=== PATIENT | male | born 1995 | race American Indian/Alaskan Native ===

== ENCOUNTER 2017-05-10 13:53 | Emergency (ER) | payer BC ==
[2017-05-10 14:13] VITALS: TEMP 97.9
[2017-05-10] MEDS ORDERED: Tobramycin/Dexamethasone (Tobradex) Opth Sol (2.5 ml) OD STA (14:54)
--- NOTE | 2017-05-10 15:10 | C.PDOC ---
History Of Present Illness Pt c/o right eye symptoms. Time Seen by Provider: 05/10/17 14:20 Chief Complaint (Nursing): Eye Problem History Per: Patient, Family Onset/Duration Of Symptoms: Days (about 2 weeks) Current Symptoms Are (Timing): Still Present Injury To Eye?: No Severity: Moderate Quality: "Pain" Associated Symptoms: Pain, Decreased Vision, Itching Additional History Per: Prior Records Past Medical History Reviewed: Historical Data, Nursing Documentation, Vital Signs Vital Signs: Last Vital Signs Temp 97.9 F 05/10/17 14:04 Pulse 57 L 05/10/17 14:04 Resp 18 05/10/17 14:04 BP 123/62 05/10/17 14:19 Pulse Ox 99 05/10/17 14:04 - Medical History PMH: No Chronic Diseases Surgical History: No Surg Hx Family History: States: Unknown Family Hx - Social History Hx Alcohol Use: Yes Hx Substance Use: Yes ("[place]") Review Of Systems Except As Marked, All Systems Reviewed And Found Negative. Constitutional: Negative for: Fever, Weakness Eyes: Positive for: Conjunctivae Inflammation. Negative for: Eyelid Inflammation ENT: Negative for: Nose Congestion, Throat Pain Cardiovascular: Negative for: Chest Pain Respiratory: Positive for: Cough (resolved). Negative for: Shortness of Breath Gastrointestinal: Negative for: Vomiting, Abdominal Pain Musculoskeletal: Negative for: Neck Pain Skin: Negative for: Rash Neurological: Positive for: Headache. Negative for: Weakness, Numbness, Seizures, Altered Mental Status Physical Exam - Physical Exam Appears: Non-toxic, No Acute Distress Skin: Normal Color, Warm, Dry, No Rash Head: Atraumatic, Normacephalic Eye(s): bilateral: PERRL, EOMI, right: Other (Small hypopyon. Mild conjunctival injection.) Oral Mucosa: Moist, No Drooling, No Trismus Neck: Normal ROM, Supple Lymphatic: No Adenopathy Cardiovascular: Rhythm Regular Respiratory: Normal Breath Sounds, No Accessory Muscle Use Gastrointestinal/Abdominal: Soft, No Tenderness Back: No CVA Tenderness Extremity: Normal ROM Neurological/Psych: Oriented x3, Normal Speech, Normal Cognition, Normal Cranial Nerves, Normal Motor, Normal Sensation ED Course And Treatment O2 Sat by Pulse Oximetry: 99 Pulse Ox Interpretation: Normal Progress Note: Peripheral vision is normal as tested by confrontation. Disposition Discussed With : Devan Gao Comment: He recommended started pt on Tobradex q2hrs while awake and he wants to see pt in his office on Thursday. Doctor Will See Patient In The: Office Counseled Patient/Family Regarding: Diagnosis, Need For Followup - Disposition Referrals: Devan Gao MD [Staff Provider] - Disposition: HOME/ ROUTINE Disposition Time: 15:12 Condition: FAIR Additional Instructions: Place 1 drop of the eye drops into your right eye every 2 hours while awake. Follow up with the Chief Procurement Officer (eye doctor) Dr. Gao (phone: [phone]) this Thursday at 8am. Return to the ER if you develop worsening of symptoms or if you have any other concerns. Instructions: Antibiotic/Anti-inflammatory Combinations (Into the eye) Forms: [facility] (Vietnamese), General Discharge Instructions - Clinical Impression Clinical Impression: Hypopyon of right eye
[2017-05-10 15:32] VITALS: BP 113/31; PULSE 59; RESP 16; O2SAT 100
== END 2017-05-10 15:33 | disposition home or self-care (01) ==
LOC: C.ER 13:53
DX: H20.051 Hypopyon, right eye (principal)